=== PATIENT | male | born 2000 | race Caucasian/White ===

== ENCOUNTER 2019-07-05 20:45 | Emergency (ER) | payer OTHER ==
[2019-07-05 20:52] VITALS: BP 143/88
--- NOTE | 2019-07-05 20:58 | ED Physician Documentation ---
History of Present Illness - Stated complaint Stated Complaint: RT BIG TOE PX, INFLAMMATION - Chief complaint Chief Complaint: Wound - History obtained from History obtained from: Patient - History of Present Illness Timing: How many days ago (3) - Additonal information Additional information: Right great toe swelling on the medial aspect of the nail fold. Started approximately 3 days ago. Worse with palpation, nothing makes it better. No drainage. History of an ingrown toenail in the left great toe. No fevers. No trauma. Review of Systems Constitutional: denies: Fever, Chills Skin: denies: Rash PD PAST MEDICAL HISTORY - Past Medical History Past Medical History: No - Present Medications Home Medications: Ambulatory Orders Medication Instructions Recorded Confirmed Cephalexin [Keflex] 500 mg PO Q6H #28 capsule 07/05/19 - Allergies Allergies/Adverse Reactions: Allergies Allergy/AdvReac Type Severity Reaction Status Date / Time No Known Drug Allergies Allergy Verified 07/05/19 20:49 - Living Situation Living Arrangement: reports: At home - Social History Does the pt have substance abuse?: No - Family History Family history: reports: Non contributory PD ED PE NORMAL - Vitals Vital signs reviewed: Yes - General General: Alert and oriented X 3, No acute distress - HEENT HEENT: Moist mucous membranes - Derm Derm: Warm and dry - Extremities Extremities: Other (R great toe - Mild inflammation and swelling to the medial aspect of the nail fold. NVI. no drainage.) - Neuro Neuro: Alert and oriented X 3 Results - Vitals Vitals: Vital Signs - 24 hr 07/05/19 20:49 Temperature 36.5 C Heart Rate 63 Respiratory 14 Rate Blood Pressure 143/88 H O2 Saturation 96 Oxygen O2 Source Room air PD MEDICAL DECISION MAKING - ED course Complexity details: d/w patient ED course: Patient with a mild inflammation to the Right great toe, medial aspect. Will place on Keflex. Will continue warm water soaks. We will have him follow-up with his doctor. Patient counseled regarding signs and symptoms for which I believe and urgent re-evaluation would be necessary. Patient with good understanding of and agreement to plan and is comfortable going home at this time This document was made in part using voice recognition software. While efforts are made to proofread this document, sound alike and grammatical errors may occur. Departure - Departure Disposition: 01 Home, Self Care Clinical Impression: Ingrown toenail, Paronychia due to ingrown nail Condition: Good Instructions: ED Fingernail Infec Follow-Up: ROBERT CUELLAR MD [Primary Care Provider] - Within 3 Days Prescriptions: Cephalexin [Keflex] 500 mg PO Q6H #28 capsule Comments: Return if you worsen. Continue warm water soaks 2-3 times per day. Follow-up with your doctor for further care.
== END 2019-07-05 21:06 | disposition home or self-care (01) ==
LOC: ED 20:45
DX: L60.0 Ingrowing nail (principal); L03.031 Cellulitis of right toe
CPT/HCPCS: 99282; 99283